=== PATIENT | male | born 1935 | race Caucasian/White ===

== ENCOUNTER 2018-03-28 13:11 | Inpatient (IN) | payer OTHER ==
[~2018-03-28] VITALS: Ht 170.2 cm; Wt 79.7 kg
[~2018-03-28 13:11] MED LIST: ACETAMINOPHEN325 M1 PO; ASPIR 8181 M1 PO; DAILY VALUE1 EACH PO; DESYREL100 MG PO; ECOTRIN325 MG PO; HYDROCHLOROTHIA25 MG PO; LOPRESSOR25 MG PO; LOW DOSE ASPIRI81 M1 PO; METOPROLOL TART50 MG PO; MICROZIDE12.5 M1 PO; MYSOLINE250 MG PO; MYSOLINE50 MG PO; PRAVACHOL40 MG PO; PRAVACHOL80 MG PO; TOPAMAX100 MG PO; ZOLOFT100 MG PO; [UNRECOGNIZED DRUG - OTHER] PO
[2018-03-28 14:10] LABS: BASOPHIL (%) 0.3 % (0-1); BASOPHIL COUNT 0.1 K/uL (0-0.1); EOSINOPHIL (%) 0 % (0-5); HEMATOCRIT 39.7 % (38.0-50.0); HEMOGLOBIN 13.3 G/DL (12.5-16.6); IMMATURE GRANULOCYTE (%) 0.5 % (0.0-0.7); LYMPHOCYTE COUNT 0.5 K/uL (1.0-2.8); MCH 31.1 PG (29.0-34.0); MCHC 33.5 G/DL (30.0-36.0); MCV 92.8 FL (86-99); MONOCYTE (%) 2.3 % (3-12); MONOCYTE COUNT 0.5 K/uL (0-0.8); NEUTROPHIL (%) 94.9 % (45-76); NEUTROPHIL COUNT 22.2 K/uL (1.8-6.4); PLATELET COUNT 238 K/uL (156-360); RBC DIS.WIDTH-CV 13.2 % (11.8-14.6); RBC DIS.WIDTH-SD 45.3 % (39-53); RED BLOOD COUNT 4.28 M/uL (4.00-5.50); WHITE BLOOD COUNT 23.4 K/uL (4.1-10.2)
[2018-03-28 14:16] LABS: ALBUMIN 2.9 g/dL (3.2-4.8); CHLORIDE 101 mEq/L (99-109); POTASSIUM 3.9 mEq/L (3.7-5.4); SODIUM 135 mEq/L (136-147)
[2018-03-28 14:18] LABS: GLUCOSE 223 mg/dL (70-99); TOTAL PROTEIN 5.3 g/dL (6.4-8.3)
[2018-03-28 14:20] LABS: TOTAL BILIRUBIN 2.4 mg/dL (0.0-1.0)
[2018-03-28 14:22] LABS: ALKALINE PHOSPHATASE 181 IU/L (3-129); CREATININE 1.5 mg/dL (0.6-1.3); GFR ESTIMATE (CALCULATED) 48 mL/min/ (58.99-99999)
[2018-03-28 14:23] LABS: AST (GOT) 460 IU/L (2-34); UREA NITROGEN (BUN) 22 mg/dL (9-23)
[2018-03-28 14:25] LABS: ALT (GPT) 345 IU/L (3-49); CREATINE KINASE 72 IU/L (1-294); TOTAL CK 72 IU/L (1-294)
[2018-03-28 14:29] LABS: TROP-I INTERPRETATION NEGATIVE; TROPONIN-I 0.01 ng/mL (0.0-0.30)
[2018-03-28 14:32] LABS: CK-MB 0.9 ng/mL (0.0-4.9); CKMB RELATIVE INDEX 1.3 (0.0-3.9)
[2018-03-28 17:34] LABS: APPEARANCE CLEAR ((CLEAR)); BILIRUBIN NEGATIVE; BLOOD LARGE; COLOR AMBER ((YELLOW)); GLUCOSE (STRIP) 50; KETONES NEGATIVE; LEUKOCYTES NEGATIVE; NITRITE NEGATIVE; PROTEIN (STRIP) 30; SPECIFIC GRAVITY 1.014 (1.000-1.030)
[2018-03-28 17:42] LABS: BACTERIA NONE SEEN /HPF; EPITHELIAL CELLS RARE /HPF; HYALINE CASTS 0-5 /LPF; MUCUS TRACE /LPF; RED BLOOD CELLS TNTC /HPF (0-5); UCUL ADDED? YES
[2018-03-28 18:07] VITALS: BP 121/70
[2018-03-28 19:43] VITALS: BP 149/74
[2018-03-28 23:15] VITALS: BP 139/76
[2018-03-29 03:35] VITALS: BP 150/71
[2018-03-29 05:22] LABS: BASOPHIL (%) 0.2 % (0-1); EOSINOPHIL (%) 0.1 % (0-5); HEMATOCRIT 36.1 % (38.0-50.0); HEMOGLOBIN 11.9 G/DL (12.5-16.6); IMMATURE GRANULOCYTE (%) 0.5 % (0.0-0.7); LYMPHOCYTE COUNT 0.8 K/uL (1.0-2.8); MCH 30.5 PG (29.0-34.0); MCV 92.6 FL (86-99); MONOCYTE (%) 3.8 % (3-12); MONOCYTE COUNT 0.6 K/uL (0-0.8); NEUTROPHIL (%) 90.4 % (45-76); NEUTROPHIL COUNT 15.2 K/uL (1.8-6.4); PLATELET COUNT 214 K/uL (156-360); RBC DIS.WIDTH-CV 13.4 % (11.8-14.6); RBC DIS.WIDTH-SD 45.8 % (39-53); WHITE BLOOD COUNT 16.8 K/uL (4.1-10.2)
[2018-03-29 05:59] LABS: ALBUMIN 2.9 G/DL (3.2-4.8); ALKALINE PHOSPHATASE 119 IU/L (3-129); ALT (GPT) 237 IU/L (3-49); AST (GOT) 249 IU/L (2-34); CHLORIDE 103 MEQ/L (99-109); POTASSIUM 3.5 MEQ/L (3.7-5.4); SODIUM 134 MEQ/L (136-147); TOTAL BILIRUBIN 1.9 MG/DL (0.0-1.0); TOTAL PROTEIN 5.3 G/DL (6.4-8.3); UREA NITROGEN (BUN) 16 mg/dL (9-23)
[2018-03-29 06:15] LABS: CREATININE 0.9 MG/DL (0.6-1.3); GFR ESTIMATE (CALCULATED) > 59 mL/min/ (58.99-99999); GLUCOSE 78 mg/dL (70-99)
[2018-03-29 07:12] VITALS: BP 138/75
[2018-03-29 07:52] LABS: INTER. NORMALIZED RATIO 1.7
[2018-03-29 07:55] LABS: PTT 31.6 SEC (25-37)
[2018-03-29 11:26] VITALS: BP 134/69; BP 139/75
[2018-03-29 16:26] VITALS: BP 153/82
[2018-03-29 18:50] VITALS: BP 162/85
[2018-03-30] VITALS (7 sets, daily range): BP systolic 114–151; BP diastolic 56–84
[2018-03-30 05:49] LABS: MCH 30.5 PG (29.0-34.0); MCHC 33.3 G/DL (30.0-36.0); MCV 91.6 FL (86-99); PLATELET COUNT 177 K/uL (156-360); RBC DIS.WIDTH-CV 13.3 % (11.8-14.6); RBC DIS.WIDTH-SD 45.1 % (39-53); RED BLOOD COUNT 3.93 M/uL (4.00-5.50); WHITE BLOOD COUNT 8.5 K/uL (4.1-10.2)
[2018-03-30 06:18] LABS: ALBUMIN 2.7 G/DL (3.2-4.8); ALKALINE PHOSPHATASE 107 IU/L (3-129); ALT (GPT) 162 IU/L (3-49); CHLORIDE 102 MEQ/L (99-109); CREATININE 0.8 MG/DL (0.6-1.3); GFR ESTIMATE (CALCULATED) > 59 mL/min/ (58.99-99999); GLUCOSE 88 mg/dL (70-99); POTASSIUM 3.4 MEQ/L (3.7-5.4); SODIUM 134 MEQ/L (136-147); TOTAL PROTEIN 5.4 G/DL (6.4-8.3); UREA NITROGEN (BUN) 9 mg/dL (9-23)
[2018-03-30 06:23] LABS: AST (GOT) 116 IU/L (2-34); TOTAL BILIRUBIN 1.2 MG/DL (0.0-1.0)
[2018-03-31 03:40] VITALS: BP 118/67
[2018-03-31 05:35] LABS: HEMATOCRIT 36.7 % (38.0-50.0); HEMOGLOBIN 12.2 G/DL (12.5-16.6); MCH 30.6 PG (29.0-34.0); MCHC 33.2 G/DL (30.0-36.0); PLATELET COUNT 178 K/uL (156-360); RBC DIS.WIDTH-CV 13.3 % (11.8-14.6); RBC DIS.WIDTH-SD 45.9 % (39-53); RED BLOOD COUNT 3.99 M/uL (4.00-5.50); WHITE BLOOD COUNT 5.1 K/uL (4.1-10.2)
[2018-03-31 06:22] LABS: ALBUMIN 2.6 G/DL (3.2-4.8); ALKALINE PHOSPHATASE 103 IU/L (3-129); ALT (GPT) 104 IU/L (3-49); CHLORIDE 103 MEQ/L (99-109); GFR ESTIMATE (CALCULATED) > 59 mL/min/ (58.99-99999); GLUCOSE 107 mg/dL (70-99); POTASSIUM 3.6 MEQ/L (3.7-5.4); SODIUM 137 MEQ/L (136-147); TOTAL PROTEIN 4.9 G/DL (6.4-8.3); UREA NITROGEN (BUN) 7 mg/dL (9-23)
[2018-03-31 06:27] LABS: AST (GOT) 50 IU/L (2-34); TOTAL BILIRUBIN 0.9 MG/DL (0.0-1.0)
[2018-03-31 08:09] VITALS: BP 141/78
[2018-03-31] MEDS ORDERED: AMOX TR-K CLV1 EAC3 PO (11:26)
[2018-03-31 12:12] VITALS: BP 130/71
== END 2018-03-31 17:52 | DRG 872 ==
LOC: EME 13:11 → EDOF 16:04 → 4EAST 16:04 → ENRESERV 16:11 → 4EAST 17:49
PROVIDERS: Emergency Medicine; Hospitalist; Internal Medicine; Radiology Diagnostic Radiology
PROC: 0F9430Z Drainage of Gallbladder with Drainage Device, Percutaneous Approach (ICD-10-PCS; principal; 2018-03-29)
DX: A41.51 Sepsis due to Escherichia coli [E. coli] (principal); I12.9 Hypertensive chronic kidney disease with stage 1 through stage 4 chronic kidney disease, or unspecified chronic kidney disease; E78.5 Hyperlipidemia, unspecified; K80.00 Calculus of gallbladder with acute cholecystitis without obstruction; Z68.28 Body mass index [BMI] 28.0-28.9, adult; N17.9 Acute kidney failure, unspecified; F03.90 Unspecified dementia, unspecified severity, without behavioral disturbance, psychotic disturbance, mood disturbance, and anxiety; Z87.891 Personal history of nicotine dependence; E87.2 Acidosis; R94.5 Abnormal results of liver function studies; Z79.82 Long term (current) use of aspirin; Z79.899 Other long term (current) drug therapy; R32 Unspecified urinary incontinence; N40.0 Benign prostatic hyperplasia without lower urinary tract symptoms; N18.9 Chronic kidney disease, unspecified
CPT/HCPCS: 49405; 70450; 71046; 74176; 76705; 80053; 81003; 82140; 82550; 82553; 82948; 83605; 84484; 85025; 85027; 85610; 85730; 87040; 87070; 87075; 87077; 87086; 87186; 87205; 87801; 93005; 99281; 99285; C1729; C1769; J1644; J1815; J2543; J3010; J3370; J7030; J7042; J7050